=== PATIENT | female | born 1980 | race Caucasian/White ===

== ENCOUNTER 2021-06-02 18:59 | Emergency (ER) | payer BC ==
[~2021-06-02] VITALS: Ht 175.3 cm; Wt 63.5 kg
[2021-06-02 19:02] VITALS: BP 125/74
[2021-06-02] MEDS ORDERED: LIDOCAINE MPF 1% 10 MG/ML VIAL INJ ONE ×2 (19:40→19:45)
[2021-06-02] MEDS ORDERED: BACITRACIN OINT 500 UNITS/GM PKT TP ONE (19:40)
[2021-06-02 20:47] VITALS: BP 125/74
--- NOTE | 2021-06-02 20:47 | NUR ---
Patient discharged with v/s stable. Written and verbal after care instructions given and explained. Patient verbalized understanding. Ambulatory with steady gait. All questions addressed prior to discharge. Advised to follow up with PMD.
== END 2021-06-02 20:47 | disposition home or self-care (01) ==
LOC: MED 18:59
DX: S61.012A Laceration without foreign body of left thumb without damage to nail, initial encounter (principal); W45.8XXA Other foreign body or object entering through skin, initial encounter; Y93.89 Activity, other specified; Y92.89 Other specified places as the place of occurrence of the external cause; Y99.8 Other external cause status
CPT/HCPCS: 12001; 90471; 90715; 99283; J2001